=== PATIENT | female | born 1995 | race Caucasian/White ===

== ENCOUNTER 2021-08-13 10:58 | Emergency (ER) | payer BC ==
[~2021-08-13] VITALS: Ht 162.6 cm; Wt 63.5 kg
[2021-08-13 11:10] VITALS: BP 120/76
[2021-08-13] MEDS ORDERED: Paxlovid PO (11:56)
== END 2021-08-13 12:10 | disposition home or self-care (01) ==
LOC: ER 11:05
DX: U07.1 COVID-19 (principal); Z79.899 Other long term (current) drug therapy
CPT/HCPCS: 71045-TC